=== PATIENT | female | born 1970 | race Caucasian/White ===

== ENCOUNTER 2016-09-12 20:38 | Emergency (ER) | payer BC, OTHER ==
[~2016-09-12] VITALS: Ht 162.6 cm; Wt 74.0 kg
[2016-09-12 20:42] VITALS: Ht 162.6 cm; Wt 74.0 kg
--- NOTE | 2016-09-12 22:36 | ERD ---
ER Documentation Chief Complaint Date/Time DATE: 09/12/16 TIME: 22:26 Chief Complaint Has not had menstruation for 9 days. HPI 46-year-old female presents here in emergency department for complaints of amenorrhea, patient did not do that, patient denies any other symptoms, denies any nausea or vomiting, denies any pelvic pain abdominal pain and flank pain. Patient did not do a test at home. Patient usually had a regular period, did not have her period on time this month, has not had a period yet. Patient denies any vaginal bleeding ROS All systems reviewed and are negative except as per history of present illness. Medications Home Meds Reported Medications [none] Unknown Strength No Conflict Check 09/12/16 Allergies Allergies: Coded Allergies: No Known Allergy (Unverified , 09/12/16) PMhx/Soc Medical and Surgical Hx: pt denies Medical Hx, pt denies Surgical Hx Hx Alcohol Use: No Hx Substance Use: No Hx Tobacco Use: No Smoking Status: Never smoker FmHx Family History: No coronary disease, No diabetes, No other Physical Exam Vitals Vital Signs Date Time Temp Pulse Resp B/P Pulse Ox O2 Delivery O2 Flow Rate FiO2 09/12/16 20:42 98.3 80 20 128/77 100 Physical Exam GENERAL: The patient is well developed and appropriate for usual state of health, in no apparent distress. CHEST: Clear to auscultation bilaterally. There are no rales, wheezes or rhonchi. HEART: Regular rate and rhythm. No murmurs, clicks, rubs or gallops. No S3 or S4. ABDOMEN: Soft, nontender and nondistended. Good bowel sounds. No rebound or guarding. No gross peritonitis. No gross organomegaly or masses. No Ruiz sign or McBurney point tenderness. BACK: No midline or flank tenderness. EXTREMITIES: Equal pulses bilaterally. There is no peripheral clubbing, cyanosis or edema. No focal swelling or erythema. Full range of motion. Grossly neurovascularly intact. NEURO: Alert and oriented. Cranial nerves 2-12 intact. Motor strength in all 4 extremities with 5/5 strength. Sensation grossly intact. Normal speech and gait. SKIN: There is no apparent rash or petechia. The skin is warm and dry. HEMATOLOGIC AND LYMPHATIC: There is no evidence of excessive bruising or lymphedema. No gross cervical, axillary, or inguinal lymphadenopathy. Result Diagram: 09/12/16 2226 Results 24 hrs Laboratory Tests Test 09/12/16 22:24 09/12/16 22:26 Beta HCG, Quantitative 50228.0mIU/ml White Blood Count 8.610^3/ul Red Blood Count 4.2210^6/ul Hemoglobin 12.0g/dl Hematocrit 36.5% Mean Corpuscular Volume 86.5fl Mean Corpuscular Hemoglobin 28.4pg Mean Corpuscular Hemoglobin Concent 32.9g/dl Red Cell Distribution Width 12.4% Platelet Count 18051^3/UL Mean Platelet Volume 9.2fl Neutrophils % 54.6% Lymphocytes % 30.8% Monocytes % 7.5% Eosinophils % 6.1% Basophils % 0.8% Nucleated Red Blood Cells % 0.0/100WBC Neutrophils # 4.710^3/ul Lymphocytes # 2.710^3/ul Monocytes # 0.710^3/ul Eosinophils # 0.510^3/ul Basophils # 0.110^3/ul Nucleated Red Blood Cells # 0.010^3/ul PROCEDURE: US Pelvis. CLINICAL INDICATION: Pelvic pain. Amenorrhea TECHNIQUE: Multiple sonographic images of the pelvis were obtained utilizing a transabdominal and endovaginal technique. The images were reviewed on a PACS workstation. COMPARISON: None available FINDINGS: Uterus: Ovoid hypoechoic posterior intramural leiomyoma measures approximately 1.9 x 1.9 x 1.8 cm. Overall uterine size is estimated at 9.1 x 6.8 x 4.3 cm. Cervix: No abnormalities of significance are seen. Endometrium: Ovoid anechoic structure possibly a gestational sac is measured at 12.8 mm in greatest dimension. There is no evidence of a yolk sac or a pole. Right ovary / adnexa: The ovary is not visualized. There is no evidence of adnexal mass. Left ovary/adnexa: The ovary is not visualized. There is no evidence of adnexal mass. Cul-de-sac: No evidence of free fluid. RPTAT:HJJR IMPRESSION: 1. Anechoic structure within the endometrial cavity probably reflects a gestational sac corresponding to an age of 5 weeks 3 days. However, as no pole is visible, viability is indeterminate and differential diagnostic possibility includes anembryonic (blighted ovum). Follow-up evaluation with serial serum beta HCG levels and ultrasound is recommended. 2. Posterior intramural leiomyoma estimated at approximately 2 cm. 3. The ovaries are not visualized. Physician Reggie Date Time Electronically viewed and signed by Kiran Adrian Physician on 09/12/2016 23:55 JR/ CC: ANTWAN YA NP Procedures/MDM Medical Decision Making: Patients has a possible blighted ovum and anechoic noted in the ultrasound, can be symptoms of miscarriage, can be early . There also an incidental finding of leiomyoma in the uterus.. Patient does not show any evidence of hypovolemic shock. Patients hemoglobin and hematocrit is stable. There is low suspicion for ectopic . Patient' s quantitative is appropriate with The patient is Rh+, does not need RhoGAM this time. There is no signs of symptoms of dehydration. There is low suspicion for sepsis. Patient appears well and is hemodynamically stable. Disposition: Home. Condition: Stable Instructions: Patient is advised to do bed rest, avoid heavy lifting, and avoid having sex until cleared by OB doctor. Patient is advised to follow up with OB doctor or here at the ER in 48 hours for reevaluation of symptoms, repeat beta HCG quantitative and ultrasound. Patient is advised that is symptoms are worst, severe bleeding, dizziness, severe abdominal pain, fever, worst signs and symptoms to return to the emergency department immediately. Departure Diagnosis: Primary Impression: Intrauterine Additional Impression: Leiomyoma Condition: Stable Patient Instructions: Uterine Fibroids Additional Instructions: Patient is advised to do bed rest, avoid heavy lifting, and avoid having sex until cleared by OB doctor. Patient is advised to follow up with OB doctor or here at the ER in 48 hours for reevaluation of symptoms, repeat beta HCG quantitative and ultrasound. Patient is advised that is symptoms are worst, severe bleeding, dizziness, severe abdominal pain, fever, worst signs and symptoms to return to the emergency department immediately. ANTWAN YA NP Sep 12, 2016 22:36
[2016-09-12 22:42] LABS: ADD SCAN DIFF NO
[2016-09-12 22:49] LABS: BASOPHIL # 0.1 10^3/ul (0.0-0.1); BASOPHILS % 0.8 % (0.0-2.0); EOSINOPHILS # 0.5 10^3/ul (0.0-0.5); EOSINOPHILS % 6.1 % (0.0-7.0); HEMATOCRIT 36.5 % (37.0-47.0); LYMPHOCYTES # 2.7 10^3/ul (0.8-2.9); LYMPHOCYTES % 30.8 % (15.0-51.0); MEAN CORPUSCULAR HEMOGLOBIN 28.4 pg (29.0-33.0); MEAN CORPUSCULAR HGB CONC 32.9 g/dl (32.0-37.0); MEAN CORPUSCULAR VOLUME 86.5 fl (82.0-101.0); MEAN PLATELET VOLUME 9.2 fl (7.4-10.4); MONOCYTE # 0.7 10^3/ul (0.3-0.9); MONOCYTES % 7.5 % (0.0-11.0); NEUTROPHIL # 4.7 10^3/ul (1.6-7.5); NEUTROPHILS % 54.6 % (39.0-77.0); PLATELET COUNT 360 10^3/UL (140-415); RED BLOOD COUNT 4.22 10^6/ul (4.20-5.40); RED CELL DISTRIBUTION WIDTH 12.4 % (11.5-14.5); WHITE BLOOD COUNT 8.6 10^3/ul (4.8-10.8)
--- NOTE | 2016-09-12 23:56 | RADRPT ---
PROCEDURE: US Pelvis. CLINICAL INDICATION: Pelvic pain. Amenorrhea TECHNIQUE: Multiple sonographic images of the pelvis were obtained utilizing a transabdominal and endovaginal technique. The images were reviewed on a PACS workstation. COMPARISON: None available FINDINGS: Uterus: Ovoid hypoechoic posterior intramural leiomyoma measures approximately 1.9 x 1.9 x 1.8 cm. Overall uterine size is estimated at 9.1 x 6.8 x 4.3 cm. Cervix: No abnormalities of significance are seen. Endometrium: Ovoid anechoic structure possibly a gestational sac is measured at 12.8 mm in greatest dimension. There is no evidence of a yolk sac or a pole. Right ovary / adnexa: The ovary is not visualized. There is no evidence of adnexal mass. Left ovary/adnexa: The ovary is not visualized. There is no evidence of adnexal mass. Cul-de-sac: No evidence of free fluid. RPTAT:HJJR IMPRESSION: 1. Anechoic structure within the endometrial cavity probably reflects a gestational sac correspondi ng to an age of 5 weeks 3 days. However, as no pole is visible, viability is indeterminate an d differential diagnostic possibility includes anembryonic (blighted ovum). Follow-up jazmín luation with serial serum beta HCG levels and ultrasound is recommended. 2. Posterior intramural leiomyoma estimated at approximately 2 cm. 3. The ovaries are not visualized. Physician Reggie Date Time Electronically viewed and signed by Physician Reggie on 09/12/2016 23:55 /
[2016-09-13 01:02] VITALS: BP 115/77; PULSE 75; RESP 16
== END 2016-09-13 01:03 | disposition home or self-care (01) ==
LOC: FTE 20:38
DX: D25.9 Leiomyoma of uterus, unspecified (principal); R10.2 Pelvic and perineal pain; Z33.1 Pregnant state, incidental
CPT/HCPCS: 76801; 76817; 84702; 85025; 86900; 86901